=== PATIENT | male | born 1970 | race Caucasian/White ===

== ENCOUNTER → 2017-07-31 | Outpatient (CLI) | payer OTHER ==
[~2017-07-31] MED LIST: ALBU8.5H IH; ALLO-2 PO; ASPI-1471 PO; ATOR20TA65 PO; AZIT-17 PO; CETI-169 PO; ESOM40CA42 PO; FEN200PT PO; FLU45SYR25 IM ONLY; FLU60SYR30 IM ONLY; FLUT16SP19 NS; LISI-374 PO; LISI20TA29 PO; MELO-207 PO; METH4TAB66 PO; MONT10TA4 PO; OMEP-125 PO; PRAV20TA66 PO; UMEC1DIS INH
[2017-07-31 07:49] LABS: PLATELET COUNT, AUTOMATED 242 K/uL (150-450)
== END ==
LOC: LAB 07:26
PROVIDERS: ATTEND Internal Medicine
DX: I12.9 Hypertensive chronic kidney disease with stage 1 through stage 4 chronic kidney disease, or unspecified chronic kidney disease (principal); N18.9 Chronic kidney disease, unspecified; J45.20 Mild intermittent asthma, uncomplicated; R79.89 Other specified abnormal findings of blood chemistry; K21.9 Gastro-esophageal reflux disease without esophagitis; E78.4 Other hyperlipidemia; H11.32 Conjunctival hemorrhage, left eye
CPT/HCPCS: 36415; 82040; 82247; 82310; 82374; 82435; 82465; 82565; 82728; 82947; 83540; 83550; 83718; 84075; 84132; 84155; 84295; 84443; 84450; 84460; 84478; 84520; 85025; 86038

== ENCOUNTER → 2018-02-13 | Outpatient (CLI) | payer OTHER ==
[~2018-02-13] MED LIST changes: +OMEP40CA48 PO; +PRED20TA6 PO
--- NOTE | 2018-02-13 10:35 | RADIOLOGY IMAGING REPORT ---
FACILITY: [facility] [place] PATIENT NAME: Bismark Andrade : 1970 MR: [id number] V: [id number] EXAM DATE: ORDERING PHYSICIAN: DELORIS GILLILAND TECHNOLOGIST: [facility] Patient: Bismark Andrade : 1970 Visit/Account:[id number] Date of Sevice: 02/13/2018 KNEE 3 VIEW RIGHT Indication: Knee pain. Comparison: None available Findings: 3 views right knee were obtained. No acute fracture or dislocation is identified. The joint spaces are well-maintained. No evidence of joint effusion. There is no focal soft tissue abnormality. No evidence of radiopaque foreign body. IMPRESSION: 1.No acute osseous abnormality of the right knee Report Dictated By: Rick Dejesus at 02/13/2018 10:28 AM Report E-Signed By: Rick Dejesus at 02/13/2018 10:30 AM WSN:[email or web address]
== END ==
LOC: RAD 09:05
PROVIDERS: ATTEND Internal Medicine
DX: M25.561 Pain in right knee (principal)

== ENCOUNTER → 2018-03-13 | Outpatient (CLI) | payer OTHER ==
[2018-03-13 08:15] LABS: PLATELET COUNT, AUTOMATED 247 K/uL (150-450)
[2018-03-13 09:11] LABS: LDL CHOLESTEROL 48 mg/dl
== END ==
LOC: LAB 07:50
PROVIDERS: ATTEND Internal Medicine
DX: R79.89 Other specified abnormal findings of blood chemistry (principal); N18.9 Chronic kidney disease, unspecified; E78.5 Hyperlipidemia, unspecified; I10 Essential (primary) hypertension; M10.9 Gout, unspecified
CPT/HCPCS: 36415; 81001; 82040; 82247; 82310; 82374; 82435; 82465; 82565; 82947; 83718; 84075; 84132; 84153; 84155; 84295; 84443; 84450; 84460; 84478; 84520; 84550; 85025

== ENCOUNTER → 2018-10-12 | Outpatient (CLI) | payer OTHER ==
[2018-10-12 08:04] LABS: PLATELET COUNT, AUTOMATED 238 K/uL (150-450)
== END ==
LOC: LAB 07:47
PROVIDERS: ATTEND Internal Medicine
DX: J45.909 Unspecified asthma, uncomplicated (principal); I12.9 Hypertensive chronic kidney disease with stage 1 through stage 4 chronic kidney disease, or unspecified chronic kidney disease; N18.9 Chronic kidney disease, unspecified; M10.9 Gout, unspecified; E78.5 Hyperlipidemia, unspecified; G47.33 Obstructive sleep apnea (adult) (pediatric)
CPT/HCPCS: 36415; 81001; 82040; 82247; 82310; 82374; 82435; 82465; 82565; 82947; 83718; 84075; 84132; 84155; 84295; 84443; 84450; 84460; 84478; 84520; 84550; 85025